=== PATIENT | female | born 1965 ===

== ENCOUNTER → 2024-07-12 12:51 | Outpatient (REF) | payer BC, SELFPAY | LOC: RAD 12:51 | PROVIDERS: ATTENDING PHYSICIAN Physician Assistant; FAMILY PHYSICIAN Specialist; REFERRING PHYSICIAN Nurse Practitioner Gerontology | DX: M79.662 Pain in left lower leg (principal) | CPT/HCPCS: 93971 ==

== ENCOUNTER → 2025-02-03 15:00 | Outpatient (REF) | payer BC, SELFPAY | LOC: HWRAD 15:00 | PROVIDERS: ATTENDING PHYSICIAN Specialist; FAMILY PHYSICIAN Nurse Practitioner Gerontology | DX: Z96.652 Presence of left artificial knee joint (principal); M25.462 Effusion, left knee | CPT/HCPCS: 93971 ==